=== PATIENT | male | born 1985 | race Caucasian/White ===

== ENCOUNTER 2017-05-30 21:22 | Emergency (ER) | payer SELFPAY ==
[~2017-05-30] VITALS: Ht 165.1 cm; Wt 66.1 kg
[2017-05-30 21:24] VITALS: BP 125/76
== END 2017-05-30 22:00 | disposition left against medical advice (07) ==
LOC: ED 21:54
DX: Z53.21 Procedure and treatment not carried out due to patient leaving prior to being seen by health care provider (principal)

== ENCOUNTER 2019-06-01 22:42 | Emergency (ER) | payer SELFPAY ==
[~2019-06-01] VITALS: Ht 165.1 cm; Wt 68.4 kg
[2019-06-01 22:43] VITALS: BP 131/82
== END 2019-06-01 23:44 | disposition home or self-care (01) ==
LOC: ED 23:09
DX: H10.231 Serous conjunctivitis, except viral, right eye (principal)
CPT/HCPCS: 99283

== ENCOUNTER 2019-06-05 14:12 | Emergency (ER) | payer MEDICAID, OTHER ==
[~2019-06-05] VITALS: Ht 165.1 cm; Wt 68.0 kg
[2019-06-05 14:22] VITALS: BP 103/64
[2019-06-05] MEDS ORDERED: FLUORESCEIN OPHTHALMIC 1 MG STRIP ONE ×2 (14:37→14:38)
[2019-06-05] MEDS ORDERED: PROPARACAINE OPHTH 0.5%, 15ML ONE (14:38)
--- NOTE | 2019-06-05 14:58 | NUR ---
ORDERED EYE DROPS FROM PHARMACY
[2019-06-05] MEDS ORDERED: CIPROFLOXACIN OPHTH SOLN 0.3%, 5ML EACHEYE SCH (15:00)
--- NOTE | 2019-06-05 15:27 | NUR ---
Rx eye drops given,
--- NOTE | 2019-06-05 15:33 | NUR ---
pt given DC paperwork, pt ambulated to DC desk with his paperwork and Rx.
== END 2019-06-05 15:35 | disposition home or self-care (01) ==
LOC: ED 15:10
DX: H10.33 Unspecified acute conjunctivitis, bilateral (principal)
CPT/HCPCS: 99283